=== PATIENT | male | born 1940 | race Caucasian/White ===

== ENCOUNTER 2021-04-20 10:25 | Inpatient (IN) ==
[2021-04-20 11:52] LABS: Basophils % 0.3 %; Eosinophils % 0.5 %; Hematocrit 26.1 % (37.5-50.1); Hemoglobin 8.4 g/dL (12.9-16.9); Immature Granulocytes % 0.9 % (0-4); Lymphocytes # 1.1 K/mcL (0.6-4.6); Lymphocytes % 19.3 %; Mean Corpuscular HGB Conc 32.2 g/dL (31.6-35.5); Mean Corpuscular Hemoglobin 40.2 pg (28.0-33.3); Mean Corpuscular Volume 124.9 fL (83.0-100.0); Mean Platelet Volume 9.6 fL (9.4-12.4); Monocytes # 0.5 K/mcL (0.0-1.3); Monocytes % 7.7 %; Neutrophils # 4.2 K/mcL (1.6-8.9); Platelet Count 1212 K/mcL (140-400); Red Blood Count 2.09 M/mcL (4.19-5.50); Red Cell Distribution Width 15.6 % (11.5-14.5); Segmented Neutrophils % 71.3 %; White Blood Count 5.9 K/mcL (4.3-11.1)
[2021-04-20 11:54] LABS: Influenza A PCR Negative (Negative); Influenza B PCR Negative (Negative); Resp. Syncytial Virus PCR Negative (Negative)
[2021-04-20 11:56] LABS: SARS-CoV-2 by PCR (In House) Negative (Negative)
[2021-04-20 11:56] LABS: BUN/Creatinine Ratio 16 (6-26); Blood Urea Nitrogen 16 mg/dL (8-23); Calcium 8.9 mg/dL (8.6-10.3); Carbon Dioxide 26 mEq/L (23-29); Chloride 100 mEq/L (98-107); Glucose 112 mg/dL (70-105); Osmolality,Calculated 276 (280-300); Potassium 4.6 mEq/L (3.5-5.1); Sodium 132 mEq/L (136-145); Troponin I < 0.03 ng/mL (< 0.04); eGFR For African Americans > 60 (> 60); eGFR For Non-African Americans > 60 (> 60)
[2021-04-20 12:21] LABS: Macrocytosis Present (Not Present); Platelet Estimate Marked Increase (Normal)
[2021-04-20] MEDS ORDERED: Isovue-370 500 ML BOTTLE IVP ONE (12:23)
[2021-04-20] MEDS ORDERED: Morphine Sulfate 2 MG/ML SYRINGE IVP STA (12:47)
[2021-04-20] MEDS ORDERED: Ondansetron 4 MG/2 ML VIAL IVP ONE (13:03)
[2021-04-20] MEDS ORDERED: Naloxone 0.4 MG/ML INJ IVP PRN (16:14)
[2021-04-20] MEDS ORDERED: *HR* OxyCODONE Immed Rel 5 MG TABLET PO PRN (16:14)
[2021-04-20] MEDS ORDERED: Ondansetron 4 MG/2 ML VIAL IVP PRN (16:14)
[2021-04-20] MEDS ORDERED: levoFLOXacin 750 MG/150 ML 750 MG/150 ML BAG IVPB ONE (16:18)
[2021-04-20] MEDS: *HR* Heparin 5,000 UNIT/ML VIAL SQ SCH (18:54)
[2021-04-20] MEDS: MethylPREDNISolone 40 MG/ML VIAL IVP SCH (18:54)
[2021-04-20] MEDS: *HR* HYDROcodone/Acet 5/325 mg TABLET PO PRN (20:03)
[2021-04-20] MEDS: Budesonide/Formoterol 160/4.5 1 PUFF INH IH SCH (21:37)
[2021-04-20] MEDS: Ipratropium/Albuterol Neb 3 ML IH SCH (21:37)
[2021-04-21] MEDS: Ipratropium/Albuterol Neb 3 ML IH SCH ×6 (00:25→21:22)
[2021-04-21 00:53] LABS: Basophils % 0.2 %; Hematocrit 24.6 % (37.5-50.1); Hemoglobin 8.1 g/dL (12.9-16.9); Lymphocytes # 0.3 K/mcL (0.6-4.6); Lymphocytes % 5.5 %; Mean Corpuscular HGB Conc 32.9 g/dL (31.6-35.5); Mean Corpuscular Hemoglobin 41.3 pg (28.0-33.3); Mean Corpuscular Volume 125.5 fL (83.0-100.0); Mean Platelet Volume 9.8 fL (9.4-12.4); Monocytes # 0.1 K/mcL (0.0-1.3); Monocytes % 1.6 %; Platelet Count 1173 K/mcL (140-400); Red Blood Count 1.96 M/mcL (4.19-5.50); Red Cell Distribution Width 15.4 % (11.5-14.5); Segmented Neutrophils % 91.7 %; White Blood Count 5.1 K/mcL (4.3-11.1)
[2021-04-21 00:58] LABS: Neutrophils # 4.7 K/mcL (1.6-8.9)
[2021-04-21 00:59] LABS: INR 1.3; Prothrombin Time 14.5 Seconds (9.4-12.1)
[2021-04-21 01:01] LABS: Activated Partial Thrombo Time 37.9 Seconds (26.0-36.0)
[2021-04-21 01:11] LABS: BUN/Creatinine Ratio 17 (6-26); Blood Urea Nitrogen 18 mg/dL (8-23); Calcium 8.6 mg/dL (8.6-10.3); Carbon Dioxide 23 mEq/L (23-29); Chloride 99 mEq/L (98-107); Glucose 132 mg/dL (70-105); Magnesium 2.1 mg/dL (1.6-2.6); Osmolality,Calculated 276 (280-300); Phosphorous 2.9 mg/dL (2.7-4.5); Potassium 5.1 mEq/L (3.5-5.1); Sodium 131 mEq/L (136-145); eGFR For African Americans > 60 (> 60); eGFR For Non-African Americans > 60 (> 60)
[2021-04-21 01:14] LABS: Large Platelets Present (Not Present); Platelet Estimate Marked Increase (Normal)
[2021-04-21 01:15] LABS: Anisocytosis 1+ (Not Present); Macrocytosis Present (Not Present)
[2021-04-21] MEDS: *HR* Heparin 5,000 UNIT/ML VIAL SQ SCH ×2 (06:23→17:21)
[2021-04-21] MEDS: MethylPREDNISolone 40 MG/ML VIAL IVP SCH ×2 (06:29→17:21)
[2021-04-21] MEDS: Budesonide/Formoterol 160/4.5 1 PUFF INH IH SCH ×2 (07:39→21:22)
[2021-04-21] MEDS: *HR* HYDROcodone/Acet 5/325 mg TABLET PO PRN (07:58)
[2021-04-21] MEDS: Aspirin Enteric Coated 81 MG Tablet PO SCH (07:59)
[2021-04-21] MEDS ORDERED: levoFLOXacin 750 MG/150 ML 750 MG/150 ML BAG IVPB SCH (09:00)
[2021-04-21] MEDS ORDERED: Hydroxyurea 500 MG CAPSULE PO SCH (09:00)
[2021-04-21] MEDS ORDERED: Vancomycin 1,250 MG/262.5 ML IV.SOLN IVPB ONE (15:09)
[2021-04-21] MEDS: DilTIAZem SR (12hr) 90 MG CAP.ER.12H PO SCH (20:56)
[2021-04-22] MEDS: Ipratropium/Albuterol Neb 3 ML IH SCH ×7 (00:06→23:20)
[2021-04-22 02:41] LABS: Hematocrit 23.3 % (37.5-50.1); Hemoglobin 7.8 g/dL (12.9-16.9); Mean Corpuscular HGB Conc 33.5 g/dL (31.6-35.5); Mean Corpuscular Hemoglobin 41.5 pg (28.0-33.3); Mean Corpuscular Volume 123.9 fL (83.0-100.0); Mean Platelet Volume 9.9 fL (9.4-12.4); Platelet Count 1330 K/mcL (140-400); Red Blood Count 1.88 M/mcL (4.19-5.50); Red Cell Distribution Width 15.3 % (11.5-14.5)
[2021-04-22 02:42] LABS: White Blood Count 8.2 K/mcL (4.3-11.1)
[2021-04-22 02:55] LABS: BUN/Creatinine Ratio 19 (6-26); Blood Urea Nitrogen 24 mg/dL (8-23); Calcium 8.1 mg/dL (8.6-10.3); Carbon Dioxide 25 mEq/L (23-29); Chloride 99 mEq/L (98-107); Glucose 152 mg/dL (70-105); Osmolality,Calculated 277 (280-300); Potassium 4.5 mEq/L (3.5-5.1); Sodium 130 mEq/L (136-145); eGFR For African Americans > 60 (> 60); eGFR For Non-African Americans 56 (> 60)
[2021-04-22 03:12] LABS: Folate 18.7 ng/mL (3.0-16.0)
[2021-04-22] MEDS: *HR* Heparin 5,000 UNIT/ML VIAL SQ SCH ×2 (05:31→17:08)
[2021-04-22] MEDS: MethylPREDNISolone 40 MG/ML VIAL IVP SCH ×2 (05:36→17:08)
[2021-04-22] MEDS: Aspirin Enteric Coated 81 MG Tablet PO SCH (07:36)
[2021-04-22] MEDS: Cholecalciferol (D-3) 1,000 UNIT (25MCG) TABLET PO SCH (07:36)
[2021-04-22] MEDS: DilTIAZem SR (12hr) 90 MG CAP.ER.12H PO SCH ×2 (07:36→19:30)
[2021-04-22] MEDS ORDERED: Hydroxyurea 500 MG CAPSULE PO SCH (09:00)
[2021-04-22] MEDS: Cyanocobalamin (B-12) 1,000 MCG/ML VIAL SQ SCH (09:40)
[2021-04-22] MEDS ORDERED: 0.9 % Sodium Chloride 1,000 ML IVC SCH (10:30)
[2021-04-22] MEDS: Budesonide/Formoterol 160/4.5 1 PUFF INH IH SCH ×2 (11:36→20:22)
[2021-04-23 00:57] LABS: BUN/Creatinine Ratio 27 (6-26); Blood Urea Nitrogen 28 mg/dL (8-23); Calcium 7.8 mg/dL (8.6-10.3); Carbon Dioxide 21 mEq/L (23-29); Chloride 102 mEq/L (98-107); Glucose 145 mg/dL (70-105); Osmolality,Calculated 280 (280-300); Potassium 4.3 mEq/L (3.5-5.1); Sodium 131 mEq/L (136-145); eGFR For African Americans > 60 (> 60); eGFR For Non-African Americans > 60 (> 60)
[2021-04-23 01:02] LABS: Hematocrit 22.7 % (37.5-50.1); Hemoglobin 7.5 g/dL (12.9-16.9); Mean Corpuscular Hemoglobin 41.2 pg (28.0-33.3); Mean Corpuscular Volume 124.7 fL (83.0-100.0); Mean Platelet Volume 9.9 fL (9.4-12.4); Platelet Count 1500 K/mcL (140-400); Red Blood Count 1.82 M/mcL (4.19-5.50); Red Cell Distribution Width 15.4 % (11.5-14.5); White Blood Count 9.2 K/mcL (4.3-11.1)
[2021-04-23] MEDS: Ipratropium/Albuterol Neb 3 ML IH SCH ×3 (03:39→11:42)
[2021-04-23] MEDS: MethylPREDNISolone 40 MG/ML VIAL IVP SCH (05:16)
[2021-04-23] MEDS: *HR* Heparin 5,000 UNIT/ML VIAL SQ SCH (05:19)
[2021-04-23] MEDS: Budesonide/Formoterol 160/4.5 1 PUFF INH IH SCH (07:31)
[2021-04-23] MEDS: Cyanocobalamin (B-12) 1,000 MCG/ML VIAL SQ SCH (08:01)
[2021-04-23] MEDS: DilTIAZem SR (12hr) 90 MG CAP.ER.12H PO SCH (08:02)
[2021-04-23] MEDS: Aspirin Enteric Coated 81 MG Tablet PO SCH (08:02)
[2021-04-23] MEDS: Cholecalciferol (D-3) 1,000 UNIT (25MCG) TABLET PO SCH (08:03)
[2021-04-23] MEDS ORDERED: Hydroxyurea 500 MG CAPSULE PO SCH (09:00)
[2021-04-23] MEDS ORDERED: levoFLOXacin 750 MG/150 ML 750 MG/150 ML BAG IVPB SCH (09:00)
[2021-04-23 10:38] LABS: Bilirubin,Urine Negative (Negative); Blood,Urine Moderate (Negative); Clarity,Urine Clear (Clear); Color,Urine Light-Yellow (Yellow); Glucose,Urine (UA) Normal (Normal); Ketones,Urine Negative (Negative); Leukocyte Esterase,Urine Negative (Negative); Nitrite,Urine Negative (Negative); Protein,Urine 50 mg/dL (Neg-Trace); RBC,Urine 15-30 per hpf (0-3); Specific Gravity,Urine 1.022 (1.010-1.025); Squamous Epithelial Cell,Urine Few per hpf (None-Few); Urobilinogen,Urine Normal (Normal); WBC,Urine 50-100 per hpf (0-3)
[2021-04-23 10:40] VITALS: BP 117/48; PULSE 105; TEMP 98.2; O2SAT 99
== END 2021-04-23 15:46 | disposition home health service (06) | DRG 190 ==
LOC: EMEROOARM 10:25 → 3ANU 10:25 → SUATTDRO 17:04 → 3ANU 17:51
PROVIDERS: ADMIT Internal Medicine; ATTEND Internal Medicine

== ENCOUNTER 2021-06-18 16:06 | Inpatient (IN) ==
[2021-06-18] MEDS ORDERED: Acetaminophen 325 MG TABLET PO PRN (19:51)
[2021-06-18] MEDS ORDERED: Melatonin 3 MG TABLET PO PRN (19:51)
[2021-06-18] MEDS ORDERED: Naloxone 0.4 MG/ML INJ IVP PRN (19:51)
[2021-06-18] MEDS ORDERED: *HR* HYDROcodone/Acet 5/325 mg TABLET PO PRN (19:51)
[2021-06-18] MEDS: *HR* OxyCODONE Immed Rel 5 MG TABLET PO PRN (20:35)
[2021-06-18] MEDS ORDERED: Isovue-370 500 ML BOTTLE IVP ONE ×2 (22:41)
[2021-06-18] MEDS ORDERED: Furosemide 40 MG/4 ML VIAL IVP ONE (22:42)
[2021-06-18] MEDS ORDERED: Hydroxyurea 500 MG CAPSULE PO SCH (22:45)
[2021-06-18] MEDS ORDERED: Azithromycin 500 MG in 0.9 % Sodium Chloride 250 ML IVPB SCH (23:45)
[2021-06-18] MEDS: Aspirin Enteric Coated 81 MG Tablet PO SCH (23:55)
[2021-06-19] MEDS: Cefepime HCl 2,000 MG in Water for inj. (sterile) 20 ML IVP SCH ×2 (00:05→08:20)
[2021-06-19 03:54] LABS: INR 1.2; Prothrombin Time 12.9 Seconds (9.4-12.1)
[2021-06-19] MEDS: Ondansetron 4 MG/2 ML VIAL IVP PRN ×2 (04:09→19:27)
[2021-06-19 04:10] LABS: Alanine Aminotransferase 9 Units/L (7-52); Albumin 3.5 g/dL (3.5-5.7); Albumin/Globulin Ratio 1.3 (1.1-2.2); Alkaline Phosphatase 76 Units/L (34-104); Aspartate Amino Transferase 13 Units/L (13-39); BUN/Creatinine Ratio 27 (6-26); Bilirubin,Total 0.2 mg/dL (0.3-1.0); Blood Urea Nitrogen 27 mg/dL (8-23); C-Reactive Protein 37 mg/L (Less than 10); Calcium 8.6 mg/dL (8.6-10.3); Carbon Dioxide 27 mEq/L (23-29); Chloride 102 mEq/L (98-107); Globulin 2.7 g/dL (2.4-3.5); Glucose 151 mg/dL (70-105); Magnesium 2.2 mg/dL (1.6-2.6); Osmolality,Calculated 292 (280-300); Sodium 137 mEq/L (136-145); Total Protein 6.2 g/dL (6.4-8.9); Troponin I < 0.03 ng/mL (< 0.04); eGFR For African Americans > 60 (> 60); eGFR For Non-African Americans > 60 (> 60)
[2021-06-19 04:25] LABS: Protein/Creatinine Ratio,Urine 0.26 mg/mg (0.00-0.20)
[2021-06-19 04:41] LABS: Bilirubin,Urine Negative (Negative); Blood,Urine Negative (Negative); Clarity,Urine Clear (Clear); Color,Urine Light-Yellow (Yellow); Glucose,Urine (UA) Normal (Normal); Ketones,Urine Negative (Negative); Leukocyte Esterase,Urine Negative (Negative); Nitrite,Urine Negative (Negative); PH,Urine 5.5 pH Units (5.0-8.0); Protein,Urine Trace mg/dL (Neg-Trace); Specific Gravity,Urine 1.021 (1.010-1.025); Urobilinogen,Urine Normal (Normal)
[2021-06-19] MEDS: *HR* Enoxaparin 40 MG/0.4 ML SYRINGE SQ SCH (05:39)
[2021-06-19] MEDS ORDERED: MethylPREDNISolone 40 MG/ML VIAL IVP SCH (06:00)
[2021-06-19 07:23] LABS: Basophils # 0.1 K/mcL (0.0-0.2); Basophils % 0.5 %; Hematocrit 23.9 % (37.5-50.1); Hemoglobin 7.5 g/dL (12.9-16.9); Immature Granulocytes % 1.8 % (0-4); Lymphocytes # 1.9 K/mcL (0.6-4.6); Lymphocytes % 7.6 %; Mean Corpuscular HGB Conc 31.4 g/dL (31.6-35.5); Mean Corpuscular Hemoglobin 33.6 pg (28.0-33.3); Mean Corpuscular Volume 107.2 fL (83.0-100.0); Mean Platelet Volume 9.6 fL (9.4-12.4); Monocytes # 0.3 K/mcL (0.0-1.3); Monocytes % 1.2 %; Neutrophils # 22.3 K/mcL (1.6-8.9); Platelet Count 2804 K/mcL (140-400); Red Blood Count 2.23 M/mcL (4.19-5.50); Red Cell Distribution Width 20.6 % (11.5-14.5); Segmented Neutrophils % 88.9 %; White Blood Count 25.1 K/mcL (4.3-11.1)
[2021-06-19 08:11] LABS: Macrocytosis Present (Not Present); Platelet Estimate Marked Increase (Normal); Toxic Granulation Present (Not Present)
[2021-06-19] MEDS ORDERED: Ipratropium/Albuterol Neb 3 ML IH PRN (11:34)
[2021-06-19] MEDS: Furosemide 20 MG/2 ML VIAL IVP SCH (16:14)
[2021-06-19] MEDS: Doxycycline 100 MG CAPSULE PO SCH (20:06)
[2021-06-19] MEDS: Hydroxyurea 500 MG CAPSULE PO SCH (20:06)
[2021-06-20] MEDS: *HR* Enoxaparin 40 MG/0.4 ML SYRINGE SQ SCH (05:33)
[2021-06-20 05:49] LABS: Basophils % 0.2 %; Eosinophils % 0.1 %; Hemoglobin 6.9 g/dL (12.9-16.9); Mean Platelet Volume 9.7 fL (9.4-12.4); Monocytes % 4.7 %; Nucleated Red Blood Cells 0.1 /100 WBC (0)
[2021-06-20 05:51] LABS: Basophils # 0.1 K/mcL (0.0-0.2); Hematocrit 22.3 % (37.5-50.1); Immature Granulocytes % 1.8 % (0-4); Lymphocytes # 2.8 K/mcL (0.6-4.6); Lymphocytes % 8.5 %; Mean Corpuscular HGB Conc 30.9 g/dL (31.6-35.5); Mean Corpuscular Hemoglobin 33.5 pg (28.0-33.3); Mean Corpuscular Volume 108.3 fL (83.0-100.0); Monocytes # 1.6 K/mcL (0.0-1.3); Platelet Count 2896 K/mcL (140-400); Red Blood Count 2.06 M/mcL (4.19-5.50); Red Cell Distribution Width 21.2 % (11.5-14.5); Segmented Neutrophils % 84.7 %
[2021-06-20 05:53] LABS: Neutrophils # 28.2 K/mcL (1.6-8.9); White Blood Count 33.3 K/mcL (4.3-11.1)
[2021-06-20 06:17] LABS: BUN/Creatinine Ratio 42 (6-26); Blood Urea Nitrogen 50 mg/dL (8-23); Calcium 8.3 mg/dL (8.6-10.3); Carbon Dioxide 29 mEq/L (23-29); Chloride 101 mEq/L (98-107); Glucose 99 mg/dL (70-105); Magnesium 2.4 mg/dL (1.6-2.6); Osmolality,Calculated 295 (280-300); Phosphorous 3.7 mg/dL (2.7-4.5); Potassium 4.6 mEq/L (3.5-5.1); Sodium 136 mEq/L (136-145); eGFR For African Americans > 60 (> 60); eGFR For Non-African Americans 58 (> 60)
[2021-06-20] MEDS ORDERED: 0.9 % Sodium Chloride 250 ML IVC SCH (08:15)
[2021-06-20] MEDS: predniSONE 20 MG TABLET PO SCH (08:17)
[2021-06-20] MEDS: Doxycycline 100 MG CAPSULE PO SCH (08:17)
[2021-06-20] MEDS: Furosemide 20 MG/2 ML VIAL IVP SCH ×2 (08:18→16:58)
[2021-06-20] MEDS: Aspirin Enteric Coated 81 MG Tablet PO SCH (08:18)
[2021-06-20] MEDS: Hydroxyurea 500 MG CAPSULE PO SCH ×2 (08:18→19:49)
[2021-06-20] MEDS: Gabapentin 100 MG CAPSULE PO SCH ×3 (10:14→19:49)
[2021-06-20] MEDS: DilTIAZem SR (12hr) 90 MG CAP.ER.12H PO SCH ×2 (10:14→19:49)
[2021-06-20] MEDS: Budesonide/Formoterol 160/4.5 1 PUFF INH IH SCH ×2 (10:23→19:53)
[2021-06-20] MEDS ORDERED: Perflutren Lipid Microsphere 1.3 ML in 0.9 % Sodium Chloride 8.7 ML IVP PRN (12:10)
[2021-06-20 18:15] LABS: Hematocrit 29.4 % (37.5-50.1)
[2021-06-20 18:16] LABS: Hemoglobin 9.3 g/dL (12.9-16.9)
[2021-06-21 05:35] LABS: Eosinophils % 0.1 %; Mean Platelet Volume 9.4 fL (9.4-12.4)
[2021-06-21 05:38] LABS: Basophils % 0.2 %; Hematocrit 27.1 % (37.5-50.1); Hemoglobin 8.8 g/dL (12.9-16.9); Immature Granulocytes % 1.7 % (0-4); Lymphocytes # 3.1 K/mcL (0.6-4.6); Lymphocytes % 11.9 %; Mean Corpuscular HGB Conc 32.5 g/dL (31.6-35.5); Mean Corpuscular Hemoglobin 33.3 pg (28.0-33.3); Mean Corpuscular Volume 102.7 fL (83.0-100.0); Monocytes # 1.5 K/mcL (0.0-1.3); Monocytes % 5.5 %; Neutrophils # 21.3 K/mcL (1.6-8.9); Nucleated Red Blood Cells 0.1 /100 WBC (0); Platelet Count 2945 K/mcL (140-400); Red Blood Count 2.64 M/mcL (4.19-5.50); Red Cell Distribution Width 21.9 % (11.5-14.5); Segmented Neutrophils % 80.6 %; White Blood Count 26.4 K/mcL (4.3-11.1)
[2021-06-21 05:41] LABS: Basophils # 0.1 K/mcL (0.0-0.2)
[2021-06-21 05:59] LABS: BUN/Creatinine Ratio 52 (6-26); Blood Urea Nitrogen 58 mg/dL (8-23); Calcium 8.4 mg/dL (8.6-10.3); Carbon Dioxide 30 mEq/L (23-29); Chloride 103 mEq/L (98-107); Glucose 93 mg/dL (70-105); Magnesium 2.2 mg/dL (1.6-2.6); Osmolality,Calculated 302 (280-300); Phosphorous 3.2 mg/dL (2.7-4.5); Potassium 4.1 mEq/L (3.5-5.1); Sodium 138 mEq/L (136-145); eGFR For African Americans > 60 (> 60); eGFR For Non-African Americans > 60 (> 60)
[2021-06-21 06:07] LABS: Platelet Estimate Increased (Normal)
[2021-06-21] MEDS: Budesonide/Formoterol 160/4.5 1 PUFF INH IH SCH ×2 (07:51→19:50)
[2021-06-21] MEDS: Furosemide 20 MG/2 ML VIAL IVP SCH ×2 (08:09→16:56)
[2021-06-21] MEDS: DilTIAZem SR (12hr) 90 MG CAP.ER.12H PO SCH ×2 (08:10→19:59)
[2021-06-21] MEDS: Hydroxyurea 500 MG CAPSULE PO SCH (08:10)
[2021-06-21] MEDS: Gabapentin 100 MG CAPSULE PO SCH ×3 (08:10→19:59)
[2021-06-21] MEDS: predniSONE 20 MG TABLET PO SCH (08:10)
[2021-06-21] MEDS: Cyanocobalamin (B-12) 1,000 MCG TABLET PO SCH (08:11)
[2021-06-21] MEDS: Cholecalciferol (D-3) 1,000 UNIT (25MCG) TABLET PO SCH (08:11)
[2021-06-21] MEDS ORDERED: Azithromycin 250 MG TABLET PO SCH (09:00)
[2021-06-21] MEDS ORDERED: levoFLOXacin 750 MG TABLET PO SCH (09:00)
[2021-06-22 03:38] LABS: Basophils # 0.1 K/mcL (0.0-0.2); Basophils % 0.2 %; Hematocrit 27.3 % (37.5-50.1); Hemoglobin 8.5 g/dL (12.9-16.9); Immature Granulocytes % 2.4 % (0-4); Lymphocytes # 2.5 K/mcL (0.6-4.6); Lymphocytes % 10.2 %; Mean Corpuscular HGB Conc 31.1 g/dL (31.6-35.5); Mean Corpuscular Volume 102.6 fL (83.0-100.0); Mean Platelet Volume 9.2 fL (9.4-12.4); Monocytes # 1.1 K/mcL (0.0-1.3); Monocytes % 4.5 %; Neutrophils # 20.5 K/mcL (1.6-8.9); Nucleated Red Blood Cells 0.2 /100 WBC (0); Platelet Count 2709 K/mcL (140-400); Red Blood Count 2.66 M/mcL (4.19-5.50); Segmented Neutrophils % 82.7 %; White Blood Count 24.8 K/mcL (4.3-11.1)
[2021-06-22 04:02] LABS: BUN/Creatinine Ratio 50 (6-26); Blood Urea Nitrogen 59 mg/dL (8-23); Calcium 8.1 mg/dL (8.6-10.3); Carbon Dioxide 25 mEq/L (23-29); Chloride 101 mEq/L (98-107); Glucose 116 mg/dL (70-105); Magnesium 2.2 mg/dL (1.6-2.6); Osmolality,Calculated 300 (280-300); Phosphorous 2.7 mg/dL (2.7-4.5); Potassium 4.2 mEq/L (3.5-5.1); Sodium 136 mEq/L (136-145); eGFR For African Americans > 60 (> 60); eGFR For Non-African Americans 60 (> 60)
[2021-06-22] MEDS ORDERED: *HR* Enoxaparin 40 MG/0.4 ML SYRINGE SQ SCH (06:00)
[2021-06-22 06:52] VITALS: BP 120/51; PULSE 78; TEMP 97.4; O2SAT 98
[2021-06-22] MEDS: Budesonide/Formoterol 160/4.5 1 PUFF INH IH SCH (07:26)
[2021-06-22] MEDS: Cholecalciferol (D-3) 1,000 UNIT (25MCG) TABLET PO SCH (08:47)
[2021-06-22] MEDS: Furosemide 20 MG/2 ML VIAL IVP SCH (08:47)
[2021-06-22] MEDS: DilTIAZem SR (12hr) 90 MG CAP.ER.12H PO SCH (08:48)
[2021-06-22] MEDS: Aspirin Enteric Coated 81 MG Tablet PO SCH (08:48)
[2021-06-22] MEDS: Cyanocobalamin (B-12) 1,000 MCG TABLET PO SCH (08:48)
[2021-06-22] MEDS: Gabapentin 100 MG CAPSULE PO SCH (08:48)
[2021-06-22] MEDS: *HR* OxyCODONE Immed Rel 5 MG TABLET PO PRN (08:49)
== END 2021-06-22 10:23 | disposition home or self-care (01) | DRG 291 ==
LOC: 2ANU → SUATTDRO 18:39
PROVIDERS: ADMIT Internal Medicine; ATTEND Internal Medicine

== ENCOUNTER 2021-07-25 16:33 | Inpatient (IN) ==
[2021-07-25] MEDS ORDERED: cefTRIAXone 1,000 MG in Water for inj. (sterile) 10 ML IVP ONE (16:47)
[2021-07-25] MEDS ORDERED: Azithromycin 500 MG in 0.9 % Sodium Chloride 250 ML IVPB ONE (16:47)
[2021-07-25 17:26] LABS: Hematocrit 24.1 % (37.5-50.1); Hemoglobin 7.3 g/dL (12.9-16.9); Mean Corpuscular HGB Conc 30.3 g/dL (31.6-35.5); Mean Corpuscular Hemoglobin 29.8 pg (28.0-33.3); Mean Corpuscular Volume 98.4 fL (83.0-100.0); Mean Platelet Volume 9.3 fL (9.4-12.4); Platelet Count 1454 K/mcL (140-400); Red Blood Count 2.45 M/mcL (4.19-5.50); Red Cell Distribution Width 19.4 % (11.5-14.5); White Blood Count 22.6 K/mcL (4.3-11.1)
[2021-07-25 17:34] LABS: INR 1.4; Prothrombin Time 15.6 Seconds (9.4-12.1)
[2021-07-25 17:37] LABS: Activated Partial Thrombo Time 35.7 Seconds (26.0-36.0)
[2021-07-25 17:48] LABS: Lymphocytes # 0.5 K/mcL (0.6-4.6); Monocytes # 0.5 K/mcL (0.0-1.3); Neutrophils # 21.7 K/mcL (1.6-8.9); Platelet Estimate Marked Increase (Normal)
[2021-07-25 17:49] LABS: Alanine Aminotransferase 17 Units/L (7-52); Albumin 2.9 g/dL (3.5-5.7); Alkaline Phosphatase 186 Units/L (34-104); Aspartate Amino Transferase 15 Units/L (13-39); BUN/Creatinine Ratio 25 (6-26); Bilirubin,Direct 0.2 mg/dL (0.0-0.2); Bilirubin,Indirect 0.2 mg/dL (0.0-1.0); Bilirubin,Total 0.4 mg/dL (0.3-1.0); Blood Urea Nitrogen 32 mg/dL (8-23); Carbon Dioxide 28 mEq/L (23-29); Chloride 105 mEq/L (98-107); Glucose 183 mg/dL (70-105); Osmolality,Calculated 302 (280-300); Potassium 3.7 mEq/L (3.5-5.1); Sodium 140 mEq/L (136-145); Total Protein 5.9 g/dL (6.4-8.9); Troponin I 0.06 ng/mL (< 0.04); eGFR For African Americans > 60 (> 60); eGFR For Non-African Americans 55 (> 60)
[2021-07-25 19:18] LABS: ABG Base Excess 4 mEq/L (-2 to 3); ABG HCO3 29 mEq/L (21-27); ABG Oxygen Saturation 94 % (95-98); ABG PCO2 46 mmHg (35-45); ABG PH 7.41 pH Units (7.32-7.45); ABG PO2 72 mmHg (85-104); ABG TCO2 30 mEq/L (20-26)
[2021-07-25 20:55] LABS: Influenza A PCR Negative (Negative); Influenza B PCR Negative (Negative); Resp. Syncytial Virus PCR Negative (Negative)
[2021-07-25 20:59] LABS: SARS-CoV-2 by PCR (In House) Negative (Negative)
[2021-07-25] MEDS ORDERED: Isovue-370 500 ML BOTTLE IVP ONE (21:46)
[2021-07-25] MEDS ORDERED: Naloxone 0.4 MG/ML INJ IVP PRN (22:28)
[2021-07-25] MEDS ORDERED: Ondansetron 4 MG/2 ML VIAL IVP PRN (22:28)
[2021-07-25] MEDS ORDERED: Ipratropium/Albuterol Neb 3 ML IH PRN (22:33)
[2021-07-25] MEDS ORDERED: D5% in Water 1,000 ML IVC PRN (23:42)
[2021-07-25] MEDS ORDERED: *HR* Dextrose 50 % in Water (Syg) 50 ML SYRINGE IVP PRN (23:42)
[2021-07-25] MEDS ORDERED: Dextrose Gel 15 GM/37.5 ML TUBE PO PRN ×2 (23:42)
[2021-07-25] MEDS ORDERED: predniSONE 20 MG TABLET PO SCH (23:45)
[2021-07-26] MEDS ORDERED: Vancomycin 1,250 MG/262.5 ML IV.SOLN IVPB ONE (01:00)
[2021-07-26] MEDS: Piperacillin/Tazobactam 3.375 GM in 0.9 % Sodium Chloride Mini Bag 100 ML IVPB SCH ×3 (01:03→17:56)
[2021-07-26] MEDS ORDERED: Acetaminophen 325 MG TABLET PO PRN (01:17)
[2021-07-26 02:10] LABS: Hematocrit 24.3 % (37.5-50.1); Hemoglobin 7.3 g/dL (12.9-16.9); Immature Granulocytes % 5.3 % (0-4); Lymphocytes # 0.9 K/mcL (0.6-4.6); Lymphocytes % 3.9 %; Mean Corpuscular Hemoglobin 29.7 pg (28.0-33.3); Mean Corpuscular Volume 98.8 fL (83.0-100.0); Mean Platelet Volume 9.3 fL (9.4-12.4); Monocytes # 0.4 K/mcL (0.0-1.3); Monocytes % 1.5 %; Neutrophils # 20.7 K/mcL (1.6-8.9); Platelet Count 1326 K/mcL (140-400); Red Blood Count 2.46 M/mcL (4.19-5.50); Red Cell Distribution Width 19.4 % (11.5-14.5); Segmented Neutrophils % 89.3 %; White Blood Count 23.2 K/mcL (4.3-11.1)
[2021-07-26 02:32] LABS: BUN/Creatinine Ratio 23 (6-26); Blood Urea Nitrogen 32 mg/dL (8-23); Calcium 7.6 mg/dL (8.6-10.3); Carbon Dioxide 26 mEq/L (23-29); Chloride 105 mEq/L (98-107); Glucose 165 mg/dL (70-105); Osmolality,Calculated 301 (280-300); Potassium 3.6 mEq/L (3.5-5.1); Sodium 140 mEq/L (136-145); eGFR For African Americans > 60 (> 60); eGFR For Non-African Americans 50 (> 60)
[2021-07-26 02:43] LABS: Thyroid Stimulating Hormone 0.896 mcIU/mL (0.340-5.600)
[2021-07-26 03:22] LABS: Large Platelets Present (Not Present); Platelet Estimate Marked Increase (Normal)
[2021-07-26 03:27] LABS: Bacteria,Urine Few per hpf (None-Few); Bilirubin,Urine Negative (Negative); Blood,Urine Small (Negative); Clarity,Urine Turbid (Clear); Color,Urine Yellow (Yellow); Glucose,Urine (UA) 70 mg/dL (Normal); Ketones,Urine Negative (Negative); Leukocyte Esterase,Urine Negative (Negative); Mucus,Urine Few per lpf (None-Few); Nitrite,Urine Negative (Negative); Protein,Urine 100 mg/dL (Neg-Trace); RBC,Urine 30-50 per hpf (0-3); Specific Gravity,Urine > 1.030 (1.010-1.025); Squamous Epithelial Cell,Urine Few per hpf (None-Few); Urobilinogen,Urine Normal (Normal)
[2021-07-26] MEDS: Aspirin Enteric Coated 81 MG Tablet PO SCH (04:31)
[2021-07-26] MEDS: predniSONE 20 MG TABLET PO SCH (06:22)
[2021-07-26] MEDS: Insulin LISPRO 300 UNITS/3 ML VIAL SUBQ SCH ×3 (08:50→17:47)
[2021-07-26] MEDS ORDERED: (Roflumilast [Daliresp] 500 MCG Tablet) PO SCH (09:00)
[2021-07-26] MEDS: Gabapentin 100 MG CAPSULE PO SCH ×3 (09:03→20:50)
[2021-07-26] MEDS ORDERED: Chloraseptic Spray 177 ML BOTTLE MM PRN (09:17)
[2021-07-26 09:53] LABS: Estimated Average Glucose 108 mg/dl; Hemoglobin A1C 5.4 %
[2021-07-27] MEDS: Piperacillin/Tazobactam 3.375 GM in 0.9 % Sodium Chloride Mini Bag 100 ML IVPB SCH ×3 (00:54→15:59)
[2021-07-27] MEDS: predniSONE 20 MG TABLET PO SCH (06:10)
[2021-07-27 08:00] LABS: Basophils % 0.1 %; Mean Platelet Volume 9.5 fL (9.4-12.4); Monocytes % 1.4 %; Red Cell Distribution Width 19.3 % (11.5-14.5)
[2021-07-27 08:01] LABS: Hematocrit 23.3 % (37.5-50.1); Hemoglobin 6.9 g/dL (12.9-16.9); Immature Granulocytes % 4.9 % (0-4); Lymphocytes # 0.9 K/mcL (0.6-4.6); Lymphocytes % 3.1 %; Mean Corpuscular HGB Conc 29.6 g/dL (31.6-35.5); Mean Corpuscular Hemoglobin 29.9 pg (28.0-33.3); Mean Corpuscular Volume 100.9 fL (83.0-100.0); Monocytes # 0.4 K/mcL (0.0-1.3); Neutrophils # 26.3 K/mcL (1.6-8.9); Platelet Count 1212 K/mcL (140-400); Red Blood Count 2.31 M/mcL (4.19-5.50); Segmented Neutrophils % 90.5 %; White Blood Count 29.1 K/mcL (4.3-11.1)
[2021-07-27 08:16] LABS: Calcium 7.6 mg/dL (8.6-10.3); Potassium 3.8 mEq/L (3.5-5.1)
[2021-07-27] MEDS: Insulin LISPRO 300 UNITS/3 ML VIAL SUBQ SCH ×3 (08:26→17:49)
[2021-07-27] MEDS: Cholecalciferol (D-3) 1,000 UNIT (25MCG) TABLET PO SCH (08:29)
[2021-07-27] MEDS: Gabapentin 100 MG CAPSULE PO SCH ×2 (08:29→20:10)
[2021-07-27] MEDS: DilTIAZem CD (24hr) 240 MG CAP.ER.24H PO SCH (08:29)
[2021-07-27] MEDS ORDERED: Furosemide 40 MG TABLET PO SCH (09:00)
[2021-07-27 09:11] LABS: Platelet Estimate Marked Increase (Normal)
[2021-07-27] MEDS: Budesonide/Formoterol 160/4.5 1 PUFF INH IH SCH ×2 (09:57→22:48)
[2021-07-27] MEDS: Doxycycline 100 MG in 0.9 % Sodium Chloride Mini Bag 100 ML IVPB SCH (17:48)
[2021-07-28] MEDS: Piperacillin/Tazobactam 3.375 GM in 0.9 % Sodium Chloride Mini Bag 100 ML IVPB SCH ×3 (00:57→15:26)
[2021-07-28] MEDS: Aspirin Enteric Coated 81 MG Tablet PO SCH (05:18)
[2021-07-28] MEDS: Doxycycline 100 MG in 0.9 % Sodium Chloride Mini Bag 100 ML IVPB SCH ×2 (05:19→17:32)
[2021-07-28] MEDS: predniSONE 20 MG TABLET PO SCH (05:19)
[2021-07-28 06:23] LABS: Mean Platelet Volume 9.6 fL (9.4-12.4); Monocytes % 1.5 %
[2021-07-28 06:24] LABS: Basophils # 0.2 K/mcL (0.0-0.2); Basophils % 0.6 %; Hematocrit 23.2 % (37.5-50.1); Immature Granulocytes % 3.8 % (0-4); Lymphocytes # 1.1 K/mcL (0.6-4.6); Mean Corpuscular HGB Conc 30.2 g/dL (31.6-35.5); Mean Corpuscular Hemoglobin 29.7 pg (28.0-33.3); Mean Corpuscular Volume 98.3 fL (83.0-100.0); Monocytes # 0.4 K/mcL (0.0-1.3); Neutrophils # 24.3 K/mcL (1.6-8.9); Platelet Count 1179 K/mcL (140-400); Red Blood Count 2.36 M/mcL (4.19-5.50); Red Cell Distribution Width 19.1 % (11.5-14.5); Segmented Neutrophils % 90.1 %
[2021-07-28 06:46] LABS: Calcium 8.4 mg/dL (8.6-10.3); Potassium 3.6 mEq/L (3.5-5.1)
[2021-07-28] MEDS: Budesonide/Formoterol 160/4.5 1 PUFF INH IH SCH ×2 (07:40→20:22)
[2021-07-28] MEDS: Insulin LISPRO 300 UNITS/3 ML VIAL SUBQ SCH ×3 (07:42→17:33)
[2021-07-28] MEDS: Gabapentin 100 MG CAPSULE PO SCH ×2 (08:59→20:08)
[2021-07-28] MEDS: DilTIAZem CD (24hr) 240 MG CAP.ER.24H PO SCH (08:59)
[2021-07-28] MEDS: Cholecalciferol (D-3) 1,000 UNIT (25MCG) TABLET PO SCH (08:59)
[2021-07-29] MEDS: Piperacillin/Tazobactam 3.375 GM in 0.9 % Sodium Chloride Mini Bag 100 ML IVPB SCH ×2 (00:27→09:52)
[2021-07-29 03:10] LABS: Lymphocytes % 4.5 %; Red Cell Distribution Width 19.3 % (11.5-14.5)
[2021-07-29 03:12] LABS: Basophils # 0.1 K/mcL (0.0-0.2); Basophils % 0.4 %; Hematocrit 22.9 % (37.5-50.1); Hemoglobin 7.2 g/dL (12.9-16.9); Immature Granulocytes % 3.6 % (0-4); Lymphocytes # 1.2 K/mcL (0.6-4.6); Mean Corpuscular HGB Conc 31.4 g/dL (31.6-35.5); Mean Corpuscular Hemoglobin 30.6 pg (28.0-33.3); Mean Corpuscular Volume 97.4 fL (83.0-100.0); Mean Platelet Volume 9.7 fL (9.4-12.4); Monocytes # 0.6 K/mcL (0.0-1.3); Neutrophils # 24.7 K/mcL (1.6-8.9); Platelet Count 1184 K/mcL (140-400); Red Blood Count 2.35 M/mcL (4.19-5.50); Segmented Neutrophils % 89.5 %; White Blood Count 27.6 K/mcL (4.3-11.1)
[2021-07-29 03:30] LABS: BUN/Creatinine Ratio 45 (6-26); Blood Urea Nitrogen 60 mg/dL (8-23); Calcium 8.6 mg/dL (8.6-10.3); Carbon Dioxide 31 mEq/L (23-29); Chloride 109 mEq/L (98-107); Glucose 111 mg/dL (70-105); Osmolality,Calculated 316 (280-300); Potassium 3.6 mEq/L (3.5-5.1); Sodium 144 mEq/L (136-145); eGFR For African Americans > 60 (> 60); eGFR For Non-African Americans 51 (> 60)
[2021-07-29 03:31] LABS: Anisocytosis 1+ (Not Present); Platelet Estimate Marked Increase (Normal)
[2021-07-29 03:53] VITALS: O2SAT 95
[2021-07-29] MEDS: Doxycycline 100 MG in 0.9 % Sodium Chloride Mini Bag 100 ML IVPB SCH (06:05)
[2021-07-29] MEDS: predniSONE 20 MG TABLET PO SCH (06:05)
[2021-07-29 07:30] VITALS: BP 162/74; PULSE 77; TEMP 98
[2021-07-29] MEDS: Insulin LISPRO 300 UNITS/3 ML VIAL SUBQ SCH (07:38)
[2021-07-29] MEDS: Budesonide/Formoterol 160/4.5 1 PUFF INH IH SCH (08:29)
[2021-07-29] MEDS: Cholecalciferol (D-3) 1,000 UNIT (25MCG) TABLET PO SCH (09:17)
[2021-07-29] MEDS: Gabapentin 100 MG CAPSULE PO SCH (09:17)
[2021-07-29] MEDS: DilTIAZem CD (24hr) 240 MG CAP.ER.24H PO SCH (09:17)
== END 2021-07-29 12:07 | disposition hospice, home (50) | DRG 871 ==
LOC: EMEROOARM 16:33 → 3ANU 23:30 → SUATTDRO 23:30 → 3ANU 07-26 00:08
PROVIDERS: ADMIT Student in an Organized Health Care Education/Training Program; ATTEND Internal Medicine